=== PATIENT | female | born 1950 | race Asian ===

== ENCOUNTER 2017-07-18 17:40 | Emergency (ER) | payer SELFPAY ==
[~2017-07-18] VITALS: Ht 157.5 cm; Wt 61.2 kg
[2017-07-18 18:32] VITALS: BP 138/76
== END 2017-07-18 19:00 | disposition home or self-care (01) ==
LOC: EDBD 17:40 → ER 17:48
DX: S00.93XA Contusion of unspecified part of head, initial encounter (principal); W22.8XXA Striking against or struck by other objects, initial encounter; Y93.89 Activity, other specified; Y99.8 Other external cause status; Y92.89 Other specified places as the place of occurrence of the external cause
CPT/HCPCS: 70450

== ENCOUNTER 2023-11-01 13:03 | Emergency (ER) | payer MEDICARE, BC, MEDICAID ==
[~2023-11-01] VITALS: Ht 167.6 cm; Wt 68.2 kg
[2023-11-01 14:50] VITALS: BP 139/90; PULSE 82; RESP 18; O2SAT 96
[2023-11-01] MEDS ORDERED: ACETAMINOPHEN 500 MG TAB PO ONE (15:15)
[2023-11-01 16:44] VITALS: TEMP 98.2
== END 2023-11-01 16:45 | disposition home or self-care (01) ==
LOC: EDBD 13:03 → ER 13:03
DX: S16.1XXA Strain of muscle, fascia and tendon at neck level, initial encounter (principal); S80.01XA Contusion of right knee, initial encounter; R51.9 Headache, unspecified; V89.2XXA Person injured in unspecified motor-vehicle accident, traffic, initial encounter; Y93.89 Activity, other specified; Y92.89 Other specified places as the place of occurrence of the external cause; Y99.8 Other external cause status
CPT/HCPCS: 70450; 72125; 73562

== ENCOUNTER 2024-07-16 21:31 | Emergency (ER) | payer BC, MEDICAID ==
[~2024-07-16] VITALS: Ht 165.1 cm; Wt 70.4 kg
[2024-07-16] MEDS ORDERED: IBUP-1454 PO (23:20)
[2024-07-16] MEDS ORDERED: HYDR-4902 PO (23:20)
[2024-07-16 23:51] VITALS: BP 142/93; PULSE 75; RESP 17; TEMP 98.4; O2SAT 96
[2024-07-16] MEDS: IBUPROFEN 600 MG TAB PO ONE (23:51)
== END 2024-07-17 00:18 | disposition home or self-care (01) ==
LOC: ER 21:31
DX: S52.111A Torus fracture of upper end of right radius, initial encounter for closed fracture (principal); Z79.1 Long term (current) use of non-steroidal anti-inflammatories (NSAID); W01.0XXA Fall on same level from slipping, tripping and stumbling without subsequent striking against object, initial encounter; Y93.89 Activity, other specified; Y92.89 Other specified places as the place of occurrence of the external cause; Y99.8 Other external cause status
CPT/HCPCS: 29125; 73110; 73130